=== PATIENT | male | born 1980 | race Caucasian/White ===

== ENCOUNTER 2017-10-26 23:31 | Emergency (ER) | payer BC, OTHER ==
[~2017-10-26] VITALS: Ht 182.9 cm; Wt 77.1 kg
[2017-10-26] MEDS ORDERED: PHENYLEPHRINE 10 MG/1 ML VIAL ONE (23:35)
[2017-10-26] MEDS ORDERED: LIDOCAINE HCL 1% 20 ML VIAL ONE (23:35)
--- NOTE | 2017-10-26 23:45 | NUR ---
Patient arrived from [facility] via ambulance c/o PRIPISM. Dr. Cordova (UROLOGY) consulted on the case and requested a procedure set-up. Nursing Boxer Operator notified.
--- NOTE | 2017-10-27 00:25 | NUR ---
Dr. Cordova performed procedure to drain the affected area. Nursing staff assisted as needed. Patient tolerated procedure well.
[2017-10-27 00:49] VITALS: BP 138/87
--- NOTE | 2017-10-27 00:51 | NUR ---
Patient discharged to home in stable conditon. Written and verbal after care instructions given. Patient verbalizes understanding of instructions.
[2017-10-27] MEDS ORDERED: LIDOCAINE HCL 1% 20 ML VIAL IJ ONE (01:00)
[2017-10-27] MEDS ORDERED: PHENYLEPHRINE IV ONE (01:00)
[2017-10-27] MEDS ORDERED: DEXTROSE 5% IV ONE (01:00)
== END 2017-10-27 00:52 | disposition home or self-care (01) ==
LOC: ER 23:35
DX: N48.30 Priapism, unspecified (principal)
CPT/HCPCS: A4217; A4663; J2370; J3490